=== PATIENT | male | born 1955 | race African-American/Black ===

== ENCOUNTER 2017-03-28 21:54 | Emergency (ER) | payer MEDICAID, OTHER ==
[~2017-03-28] VITALS: Ht 180.3 cm; Wt 75.0 kg
[~2017-03-28 21:54] MED LIST: CARV3.12 PO; CEPH500C3 PO; DOCU100T9 PO; DOCU240C PO; EMTR200 PO; ENAL5TAB PO; FURO1TAB93 PO; HYDR10TA16 PO; NEXI40CA PO; SOTA80TA PO; SPIR25TA PO; SUST600T4 PO; TENO300 PO; VALA1TAB PO
[2017-03-28 21:56] VITALS: BP 126/86; PULSE 81; RESP 18; TEMP 98.5; O2SAT 95
[2017-03-28] MEDS ORDERED: ASPI325T PO (22:20)
[2017-03-28 22:29] VITALS: O2SAT 100
[2017-03-28] MEDS ORDERED: LORazepam 2 MG/ML VIAL IV PUSH ONE (22:30)
[2017-03-28] MEDS ORDERED: ASPIRIN 81 MG CHEW TAB CHEW ONE (22:30)
[2017-03-28] MEDS ORDERED: SODIUM CHLORIDE 0.9% FLUSH 10 ML FLUSH IVF PRN (22:30)
--- NOTE | 2017-03-28 22:39 | RADRPT ---
EXAM DATE/TIME: 03/28/2017 22:16 [place] COMPARISON: No previous studies available for comparison. INDICATIONS : Chest pain MEDICAL HISTORY : Cardiovascular disease. SURGICAL HISTORY : Pacemaker. ENCOUNTER: Initial ACUITY: 1 day PAIN SCORE: 7/10 LOCATION: chest FINDINGS: Heart size is enlarged. Pacer lead overlies right ventricle. No effusion. No pneumothorax. 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 CONCLUSION: 1. Cardiomegaly. Pacer lead overlies right ventricle. No effusion or pneumothorax. Kvng Das MD on March 28, 2017 at 22:36 Board Certified Radiologist. This report was verified electronically.
[2017-03-28 23:02] LABS: AUTOMATED NEUTROPHIL # 2.7 TH/MM3 (1.8-7.7); BASOPHIL % 0.7 % (0.0-2.0); EOSINOPHIL # 0.2 TH/MM3 (0-0.4); EOSINOPHIL % 2.7 % (0.0-4.0); HEMATOCRIT 37.8 % (39.0-51.0); HEMO FLAGS DIFF FINAL; LYMPH % 40.4 % (9.0-44.0); LYMPHOCYTE # 2.3 TH/MM3 (1.0-4.8); MEAN CELL VOLUME 102.4 FL (80.0-100.0); MEAN CORPUSCULAR HEMOGLOBIN 35.5 PG (27.0-34.0); MEAN CORPUSCULAR HGB CONC 34.7 % (32.0-36.0); MONO % 8.2 % (0.0-8.0); PLATELET COUNT 152 TH/MM3 (150-450); RED BLOOD COUNT 3.69 MIL/MM3 (4.50-5.90); RED CELL DISTRIBUTION WIDTH 12.5 % (11.6-17.2); WHITE BLOOD COUNT 5.7 TH/MM3 (4.0-11.0)
[2017-03-28 23:12] LABS: PROTHROMBIN TIME - PATIENT 11.5 SEC (9.8-11.6)
[2017-03-28 23:24] LABS: ANION GAP 8 MEQ/L (5-15); BICARBONATE 22.7 MEQ/L (21.0-32.0); BLOOD UREA NITROGEN 13 MG/DL (7-18); CHLORIDE 105 MEQ/L (98-107); GLOMERULAR FILTRATION RATE 79 ML/MIN (>89); MAGNESIUM 1.9 MG/DL (1.5-2.5); POTASSIUM 3.6 MEQ/L (3.5-5.1); SODIUM (NA) 136 MEQ/L (136-145)
[2017-03-28 23:29] LABS: CREATINE KINASE 354 U/L (39-308)
[2017-03-28 23:41] LABS: CKMB 2.6 NG/ML (0.5-3.6)
--- NOTE | 2017-03-28 23:47 | PD ---
HPI . Chest pain Chief Complaint: Chest Pain Time Seen by Provider: 22:12 Travel History International Travel<30 days: No Contact w/Intl Traveler<30days: No Traveled to known affect area: No History of Present Illness HPI This patient presents with a chief complaint of chest pain. Onset yesterday. As a pulsating sensation in his chest which comes and goes. He states that it occurs about every 45-60 minutes and lasts for just a couple seconds. He notes no exacerbating or relieving factors. He actually indicates that the symptoms have been present for longer than just 24 hours. He states that he developed numbness and tingling in his hands and feet yesterday that is what really causes him to present to us tonight. He states that the numbness and tingling has been constant and progressively worse. Respiratory no relieving factors. No previous similar history. The nurse has learned that the patient is noncompliant with all of his medications PFSH Past Medical History Hx Anticoagulant Therapy: Yes (asprin) Heart Rhythm Problems: Yes Past Surgical History Other Surgery: Yes (defib) Social History Alcohol Use: Yes Tobacco Use: No Substance Use: No Allergies-Medications (Allergen,Severity, Reaction): Coded Allergies: No Known Allergies (Verified , 03/28/17) Reported Meds & Prescriptions Reported Meds & Active Scripts Active No Active Prescriptions or Reported Medications Review of Systems Except as stated in HPI: all other systems reviewed are Neg Cardiovascular: Positive: Chest Pain or Discomfort Neurologic: Positive: Paresthesia Physical Exam Narrative GENERAL: Patient is awake and alert and in no acute distress. SKIN: Warm and dry. HEAD: Atraumatic. Normocephalic. EYES: Pupils equal and round. Extraocular movements are intact. ENT: No nasal bleeding or discharge. Mucous membranes pink and moist. NECK: Trachea midline. Neck is supple. CARDIOVASCULAR: Regular rate and rhythm. Heart sounds are normal. RESPIRATORY: No accessory muscle use. Lungs are clear with full air movement throughout. GASTROINTESTINAL: Abdomen soft, non-tender, nondistended. MUSCULOSKELETAL: No obvious deformities. No edema. NEUROLOGICAL: Awake and alert. No obvious cranial nerve deficits. Motor grossly within normal limits. Normal speech. PSYCHIATRIC: Appropriate mood and affect; insight and judgment normal. Data Data Last Documented VS Vital Signs Date Time Temp Pulse Resp B/P Pulse Ox O2 Delivery O2 Flow Rate FiO2 03/28/17 22:29 100 Room Air 03/28/17 21:56 98.5 81 18 126/86 Orders Electrocardiogram (03/28/17 22:17) Basic Metabolic Panel (Bmp) (03/28/17 22:17) Ckmb (Isoenzyme) Profile (03/28/17 22:17) Complete Blood Count With Diff (03/28/17 22:17) Magnesium (Mg) (03/28/17 22:17) Prothrombin Time / Inr (Pt) (03/28/17 22:17) Act Partial Throm Time (Ptt) (03/28/17 22:17) Troponin I (03/28/17 22:17) Chest, Single Ap (03/28/17 22:17) Ecg Monitoring (03/28/17 22:17) Iv Access Insert/Monitor (03/28/17 22:17) Oximetry (03/28/17 22:17) Sodium Chloride 0.9% Flush (Ns Flush) (03/28/17 22:30) Aspirin Chew (Aspirin Chew) (03/28/17 22:30) Lorazepam Inj (Ativan Inj) (03/28/17 22:30) CKMB (03/28/17 22:24) CKMB% (03/28/17 22:24) Labs Laboratory Tests Test 03/28/17 22:24 White Blood Count 5.7 TH/MM3 Red Blood Count 3.69 MIL/MM3 Hemoglobin 13.1 GM/DL Hematocrit 37.8 % Mean Corpuscular Volume 102.4 FL Mean Corpuscular Hemoglobin 35.5 PG Mean Corpuscular Hemoglobin 34.7 % Concent Red Cell Distribution Width 12.5 % Platelet Count 152 TH/MM3 Mean Platelet Volume 9.0 FL Neutrophils (%) (Auto) 48.0 % Lymphocytes (%) (Auto) 40.4 % Monocytes (%) (Auto) 8.2 % Eosinophils (%) (Auto) 2.7 % Basophils (%) (Auto) 0.7 % Neutrophils # (Auto) 2.7 TH/MM3 Lymphocytes # (Auto) 2.3 TH/MM3 Monocytes # (Auto) 0.5 TH/MM3 Eosinophils # (Auto) 0.2 TH/MM3 Basophils # (Auto) 0.0 TH/MM3 CBC Comment DIFF FINAL Differential Comment Prothrombin Time 11.5 SEC Prothromb Time International 1.0 RATIO Ratio Activated Partial 31.0 SEC Thromboplast Time Sodium Level 136 MEQ/L Potassium Level 3.6 MEQ/L Chloride Level 105 MEQ/L Carbon Dioxide Level 22.7 MEQ/L Anion Gap 8 MEQ/L Blood Urea Nitrogen 13 MG/DL Creatinine 1.13 MG/DL Estimat Glomerular Filtration 79 ML/MIN Rate Random Glucose 77 MG/DL Calcium Level 8.9 MG/DL Magnesium Level 1.9 MG/DL Total Creatine Kinase 354 U/L Creatine Kinase MB 2.6 NG/ML Creatine Kinase MB % 0.7 % Troponin I LESS THAN 0.02 NG/ML MDM Medical Decision Making Medical Screen Exam Complete: Yes Emergency Medical Condition: Yes Medical Record Reviewed: Yes (medical history is significant for hypertension, congestive heart failure, HIV.) Interpretation(s) EKG shows a sinus rhythm. Right bundle branch block. No ST segment elevation or depression. Differential Diagnosis Differential diagnosis of chest pain includes but is not limited to musculoskeletal pain, pulmonary embolism, acute coronary syndrome, pneumonia, pleurisy My differential diagnosis of paresthesias includes but is not limited to anxiety , radiculopathy, peripheral neuropathy, peripheral vascular disease, compartment syndrome Narrative Course This patient presents for evaluation of chest pain and paresthesias. Is patient is noncompliant with all of his medications. CBC & BMP Diagram 03/28/17 22:24 Cardiac enzymes are negative. On further discussion with the patient, the real reason why he is here is that he would like to have the battery fibrillator change. I have explained to him that that is not something that we can arrange for the emergency department. It is not something for which I can admit him to the [facility]. He does not meet any criteria for hospital. This patient has been seen here in the remote past by Dr. Pang and currently sees in [facility]. I will give the patient a referral to both of them. Diagnosis Primary Impression: Paresthesias Additional Impression: Chest pain Qualified Code: R07.9 - Chest pain, unspecified type Referrals: Braulio (PCP/Family) Deo Pang MD Scripts No Active Prescriptions or Reported Meds Disposition: DISCHARGE HOME Condition: Stable Ami Jacob MD Mar 28, 2017 23:47
--- NOTE | 2017-03-29 07:55 | EKG ---
Date Performed: 03/28/2017 Time Performed: 22:38:58 PTAGE: 62 years EKG: Sinus rhythm WITH FIRST DEGREE AV BLOCK MARKED RIGHT AXIS DEVIATION RIGHT BUNDLE BRANCH BLOCK ANTEROSEPTAL MYOCAR DIAL INFARCTION ABNORMAL ECG Compared to prior electrocardiogram, Probable right bundle branch block is present and T-wave changes are less marked. PREVIOUS TRACING : 07/18/2011 05.49 DOCTOR: Alhaji Brownlee Interpretating Date/Time 03/29/2017 07:53:41
== END 2017-03-29 00:18 | disposition home or self-care (01) ==
LOC: NEPE 21:54
DX: R07.9 Chest pain, unspecified (principal); R20.0 Anesthesia of skin; I45.10 Unspecified right bundle-branch block; Z95.810 Presence of automatic (implantable) cardiac defibrillator; Z79.82 Long term (current) use of aspirin; Z91.14 Patient's other noncompliance with medication regimen
CPT/HCPCS: 71010; 80048; 82550; 82552; 83735; 84484; 85025; 85610; 85730; 93005; 96374; 99285; J2060